=== PATIENT | male | born 1940 | race Caucasian/White ===

== ENCOUNTER 2018-01-02 12:02 | Outpatient (REF) | payer MEDICARE, SELFPAY ==
[2018-01-02 21:23] LABS: HCT 43.2 % (40.0-50.0); HGB 14.6 g/dL (13.5-17.5); Mean Corp. HGB Concentration 33.8 g/dL (32.0-36.0); Mean Corpuscular Hemoglobin 31.4 pg (27.0-33.0); Mean Corpuscular Volume 92.9 fL (80-95); Mean Platelet Volume 10.1 fL (8.0-11.0); Platelet Count 172 x1000/uL (130-400); RBC 4.65 m/cumm (4.50-6.00); RBC Distribution Width 12.6 % (11.8-14.1); White Blood Cell Count 5.72 k/cumm (4.4-10.8)
== END 2018-01-02 12:22 ==
LOC: NCHCN 12:02
PROVIDERS: PCP Family Medicine; Visit Provider Specialist/Technologist Athletic Trainer
DX: E53.8 Deficiency of other specified B group vitamins (principal); D51.0 Vitamin B12 deficiency anemia due to intrinsic factor deficiency
CPT/HCPCS: 85027

== ENCOUNTER 2018-07-06 11:45 | Outpatient (REF) | payer MEDICARE, SELFPAY ==
[2018-07-06 22:22] LABS: Anion Gap 8.8 mmol/L (3-11); BUN 21 mg/dL (7-18); CO2 27.2 mmol/L (21.0-32.0); CREATININE 1.01 mg/dL (0.70-1.30); Calcium 8.9 mg/dL (8.5-10.1); Chloride 104 mmol/L (98-107); Glucose 98 mg/dL (70-100); Potassium 4.3 mmol/L (3.5-5.1); Sodium 140 mmol/L (136-145)
== END 2018-07-06 12:05 ==
LOC: NCHCN 11:45
PROVIDERS: PCP Family Medicine; Visit Provider Specialist/Technologist Athletic Trainer
DX: I10 Essential (primary) hypertension (principal)
CPT/HCPCS: 80048

== ENCOUNTER 2019-07-13 12:40 | Outpatient (REF) | payer MEDICARE, SELFPAY ==
[2019-07-13 20:10] LABS: Mean Corp. HGB Concentration 33.3 g/dL (32.0-36.0); Mean Corpuscular Hemoglobin 32.7 pg (27.0-33.0); Mean Corpuscular Volume 98.1 fL (80-95); Mean Platelet Volume 9.9 fL (8.0-11.0); Platelet Count 195 x1000/uL (130-400); RBC 4.28 m/cumm (4.50-6.00); RBC Distribution Width 12.7 % (11.8-14.1); White Blood Cell Count 5.28 k/cumm (4.4-10.8)
[2019-07-13 20:17] LABS: Vitamin B12 104 pg/mL (193-986)
== END 2019-07-13 13:00 ==
LOC: NCHCN 12:40
PROVIDERS: PCP Family Medicine; Visit Provider Nurse Practitioner Family
DX: E53.8 Deficiency of other specified B group vitamins (principal); R25.2 Cramp and spasm
CPT/HCPCS: 85027; 82607

== ENCOUNTER 2020-12-29 21:57 | Outpatient (REF) | payer MEDICARE, SELFPAY ==
[2020-12-29 20:38] LABS: HCT 39.8 % (40.0-50.0); HGB 13.1 g/dL (13.5-17.5); MCH 29.7 pg (27.0-33.0); MCHC 32.9 % (32.0-36.0); MCV 90.2 fL (80-95); MPV 9.4 fL (8.0-11.0); Platelet Count 213 10^3/uL (130-400); RBC 4.41 10^6/uL (4.36-5.78); RDW 12.6 % (11.8-14.1); RDW-SD 41.5 fL; WBC 7.09 10^3/uL (4.4-10.8)
[2020-12-29 20:44] LABS: Anion Gap 6.8 mmol/L (3-11); BUN 18 mg/dL (7-18); CO2 29.2 mmol/L (21.0-32.0); CREATININE 1.1 mg/dL (0.70-1.30); Calcium 8.7 mg/dL (8.5-10.1); Chloride 106 mmol/L (98-107); Glucose 92 mg/dL (74-106); Potassium 4.3 mmol/L (3.5-5.1); Sodium 142 mmol/L (136-145)
[2020-12-29 21:27] LABS: Calculated LDL 70 mg/dL (<100); Cholesterol 117 mg/dL (<200); HDL Cholesterol 36 mg/dL (40-60); Triglyceride 57 mg/dL (<150); Vitamin B12 132 pg/mL (193-986)
== END 2020-12-29 21:58 | disposition home or self-care (01) ==
LOC: NCHCN 21:57
PROVIDERS: PCP Family Medicine; Visit Provider Nurse Practitioner Family
DX: I10 Essential (primary) hypertension (principal); E53.8 Deficiency of other specified B group vitamins; R20.2 Paresthesia of skin; M19.90 Unspecified osteoarthritis, unspecified site
CPT/HCPCS: 80048; 80061; 85027; 82607

== ENCOUNTER → 2021-09-25 09:42 | Outpatient (BNVA) | payer MEDICARE, SELFPAY | PROVIDERS: PCP Family Medicine; Referring Provider Family Medicine; Visit Provider Physical Therapy Assistant | DX: Z12.11 Encounter for screening for malignant neoplasm of colon (principal) ==

== ENCOUNTER 2021-11-18 06:57 | Day surgery (SDC) | payer MEDICARE, SELFPAY ==
--- NOTE | 2021-11-18 06:28 | HPE_ITS ---
Assessment and Plan Assessment and plan (1) Screening for colon cancer: Status: Acute Assessment and plan: The patient is here for Colonoscopy pre-op.?His last screening in his medical chart says 2006, which was unremarkable. Note from PCP states Colonoscopy in 2010, patient does not recall when his last [place]. was.?He has no family history of colon cancer. He has not had any bowel habit changes. -Discussed colonoscopy bowel prep as well as the procedure. Discussed possible complications of the procedure to include bleeding, pain, perforation, missed small lesion/polyp, sore throat, aspiration and adverse reaction to the medications. Questions were answered to patient?s satisfaction. No guarantees were implied or given.? P// Colonoscopy under sedation History of Present Illness Narrative: 80 y/o male with history of pernicious anemia and HTN presents for colonoscopy screening pre-op. His last screening in his medical chart says 2006, which was unremarkable. Note from PCP states Colonoscopy in 2010, patient does not recall when his last [place]. was.? He denies a family history of colon cancer. He denies any changes in bowel habits including bloody or black tarry stools, abdominal pain, diarrhea or constipation. He denies constitutional symptoms. Denies use of marijuana or any other recreational or illegal drugs. He denies chest pain, palpitations, dyspnea or dyspnea with exertion. He denies prior history or family history of adverse reactions or complications with anesthesia. The patient denies any history of stroke, NV, seizures, bleeding or clotting disorders. He denies having any implanted metal in his body. No changes in his health since he was last seen Review of Systems All systems reviewed & are unremarkable except as noted in HPI and below PFSH All Active Problems Pernicious anemia (Acute) Screening for colon cancer (Acute) Medical History B12 deficiency Hypertension Muscle cramps Osteoarthritis Paresthesia Rash Seasonal allergies Vitamin D deficiency Social History Smoking/Tobacco Use Status: Former Tobacco Use Quit Date: 02/28/62 Smoking risk assessment performed?: Yes Alcohol Intake: current Alcohol Intake frequency: holidays/special occasions only Alcohol type: wine Drug use: Never Substance use type: does not use Do you feel safe at home: Yes Do you feel safe in your relationship?: Yes Meds Allergies and Home Medications Allergies Allergy/AdvReac Type Severity Reaction Status Date / Time No Known Allergies Allergy Verified 11/18/21 07:29 Home Medications Medication Instructions Recorded Confirmed Type cholecalciferol (vitamin D3) 25 25 mcg PO DAILY 01/29/21 09/25/21 History mcg (1,000 unit) capsule cyanocobalamin (vitamin B-12) 1,000 mcg subcut QMONTH 01/29/21 11/18/21 History 1,000 mcg/mL injection solution lisinopril 10 mg tablet 10 mg PO DAILY 01/29/21 11/18/21 History multivitamin 1 tab PO DAILY 01/29/21 11/18/21 History bisacodyl 5 mg tablet,delayed 5 mg PO ONCE #4 tabs 09/25/21 11/18/21 Rx release (Dulcolax (bisacodyl)) polyethylene glycol 3350 17 17 g PO ONCE #238 grams 09/25/21 11/18/21 Rx gram/dose oral powder Exam Const General: comfortable and no acute distress Orientation: alert and oriented x3 HENMT Head: normocephalic and atraumatic Resp Effort & Inspection: normal respiratory effort Auscultation: clear to auscultation bilaterally Cardio Rate: regular rate Rhythm: regular rhythm GI Inspection: normal to inspection Palpation: soft, no hepatosplenomegaly and nontender
--- NOTE | 2021-11-18 06:35 | PDOC.DSDIS_ITS ---
Discharge Plan Disposition Patient Disposition: HOME Condition: Good Discharge Details Reason For Visit: colonoscopy Attending Provider: Cora Goodson Primary Care Provider: Diane Bauer V Home Meds and New Rx's Prescriptions: Continued multivitamin Tablet 1 tab PO DAILY cholecalciferol (vitamin D3) 25 mcg (1,000 unit) capsule 25 mcg PO DAILY cyanocobalamin (vitamin B-12) 1,000 mcg/mL solution 1,000 mcg subcut QMONTH lisinopril 10 mg tablet 10 mg PO DAILY Discontinued bisacodyl [Dulcolax (bisacodyl)] 5 mg tablet,delayed release (DR/EC) 5 mg PO ONCE Qty: 4 0RF Rx Instructions: Take according to provider's instructions for colonoscopy prep. polyethylene glycol 3350 17 gram/dose powder 17 g PO ONCE Qty: 238 0RF Rx Instructions: To be taken as directed by prescriber's office for colonoscopy prep. Discharge Instructions Instructions: Colorectal Polyps (DC), Diverticulosis (DC) Additional Instructions: Findings: polyps x4 Diverticulosis Follow up: 5 years Please call if you develop: fevers >101.5 Nausea or Vomiting Abdominal pain that is not transient Rectal bleeding that is more then a tbsp A hard abdomen and inability to pass gas DAY SURGERY UNIT POST ENDOSCOPY INSTRUCTIONS Instructions for everyone who is given Anesthesia: For your safety, please do the following for the next 24 Hours: a. Do not drive or operate dangerous equipment b. Do not drink alcohol beverages or use any recreational drugs for the first 24 hours or while taking pain medications. The medications in your body may have a reaction that can be dangerous. c. Do not make any important decisions or sign any important papers 1. Generally there are no restrictions on your activity after a day or so has gone by, but you may feel a bit fatigued for a few days. 2. After you arrive home you may have a light meal and return to a normal diet as you can tolerate it without feeling sick to your stomach. 3. After surgery, you may feel pain or discomfort. This should be only transi ent, but if it persists please contact your doctor. 4. If there are any questions regarding the findings of your procedure, please feel free to contact your doctor. 6. If you are unable to contact your doctor with a problem, contact the hospital at [phone]. 7. Continue all your regular medications unless directed otherwise. I understand the above instructions and have no questions. Signature of Patient or Responsible Adult Escort Date/Time Name of Responsible Adult Escort Signature of Nurse Date/Time Activity:: Activity as Tolerated Diet:: high fiber Discharge Orders Discharge Orders: Discharge Order (Routine); Ordered 11/18/21 Ordered By: Cora Goodson DS: Diagnosis Discharge Diagnosis (1) Screening for colon cancer: Status: Acute
--- NOTE | 2021-11-18 06:36 | W.COLOREPORT ---
Colonoscopy Report Date of procedure: 11/18/21 Pre-op diagnosis general: colon cancer screening Post-op diagnosis procedure note: other (polyps and diverticulosis) Procedure: Colonoscopy with polypectomy Surgeon: Cora Goodson Anesthesia Type: General:No Airway Estimated blood loss (mL): 3 Pathology: other (ascending polyps x2, transverse polyp, sigmoid polyp) Complications: None Disposition: same day Indications: The patient is here for Colonoscopy pre-op.?His last screening in his medical chart says 2006, which was unremarkable. Note from PCP states Colonoscopy in 2010, patient does not recall when his last [place]. was.?He has no family history of colon cancer. He has not had any bowel habit changes. -Discussed colonoscopy bowel prep as well as the procedure. Discussed possible complications of the procedure to include bleeding, pain, perforation, missed small lesion/polyp, sore throat, aspiration and adverse reaction to the medications. Questions were answered to patient?s satisfaction. No guarantees were implied or given.? Prep: Miralax/Dulcolax Procedure Start Time: 08:26 Procedure End Time: 08:52 Retraction Time: 9 minutes Findings: 4 small polyps 'Diverticulosis Procedure Description: After informed consent was obtained the patient was taken to the procedure room and placed in a left decubitous position. Monitors were applied and a time out was done. The patients name, date of , procedure, allergies to medications and metal in their body was reviewed. The patient was then sedated. Once sedated and comfortable a rectal exam was done. External exam was normal. Internal exam revealed a normal sphincter tone and no palpable masses. I was unable to feel the prostate. The scope was then introduced and retro-flexed. Grade 2 internal hemorrhoids were identified. No polyps or masses were identified on retro-flexion. The scope was then advanced to the cecum without difficulty. The ileocecal vlave and appendiceal orifice were identified. The prep was good. The scope was then slowly retracted over 9 minutes back into the rectum. Polyps were removed with cold forceps in the ascending colon x2, transverse colon and sigmoid colon. There was mild navarro- diverticulosis noted. The scope was removed and the patient was woken up and taken back to Same day surgery in stable condition. The patient tolerated the procedure well and there were no immediate complications.
--- NOTE | 2021-11-18 07:06 | ANES.PREOP_ITS ---
General Info Date of Service Date Performed: 11/18/21 Height: 5 ft 8 in Weight: 81.647 kg Body Mass Index (BMI): 27.3 Surgical Procedure: Operation Date: 11/18/21 08:35 Proposed Procedure Side Surgeon p Mario Goodson MD Meds Allergies and Home Medications Allergies Allergy/AdvReac Type Severity Reaction Status Date / Time No Known Allergies Allergy Verified 11/18/21 07:29 Home Medication Medication Instructions Recorded cholecalciferol (vitamin D3) 25 25 mcg PO DAILY 01/29/21 mcg (1,000 unit) capsule cyanocobalamin (vitamin B-12) 1,000 mcg subcut QMONTH 01/29/21 1,000 mcg/mL injection solution lisinopril 10 mg tablet 10 mg PO DAILY 01/29/21 multivitamin 1 tab PO DAILY 01/29/21 bisacodyl 5 mg tablet,delayed 5 mg PO ONCE #4 tabs 09/25/21 release (Dulcolax (bisacodyl)) polyethylene glycol 3350 17 17 g PO ONCE #238 grams 09/25/21 gram/dose oral powder Current Visit Medications: Current Medications Generic Name Dose Route Start Last Admin Trade Name Freq PRN Reason Stop Dose Admin Hyoscyamine Sulfate 0.125 mg 11/18/21 06:33 Hyoscyamine 0.125 Mg Sl/Oral/Chew SL DIRECTED PRN Ringer's Solution 1,000 mls @ 80 mls/hr 11/18/21 06:00 IV 11/18/21 23:59 INFUSION [facility] IV Miscellaneous Supplies 1 each 11/18/21 06:00 Iv Access IV 11/18/21 23:59 DIRECTED JUAN Ondansetron HCl 4 mg 11/18/21 06:33 Ondansetron 4 Mg/2 Ml Vial IVP Q4H PRN PRN Nausea / Vomiting Sodium Chloride 0 ml 11/18/21 06:00 Normal Saline Flush 10 Ml Syr IV 11/18/21 23:59 PRN PRN Sodium Chloride 0 ml 11/18/21 06:00 Normal Saline 10 Ml Vial IJ 11/18/21 23:59 DIRECTED PRN Sterile Water 0 ml 11/18/21 06:00 Water,Injection,Sterile 10 Ml Vial IJ 11/18/21 23:59 DIRECTED PRN PFSH Active Problems Active Problems: Problem Status Onset Code Pernicious anemia D51.0 Screening for colon cancer Z12.11 Medical History Medical History B12 deficiency Hypertension Muscle cramps Osteoarthritis Paresthesia Rash Seasonal allergies Vitamin D deficiency Tobacco Smoking/Tobacco Use Status: Former Tobacco Use Alcohol Alcohol Intake: current Alcohol intake frequency: holidays/special occasions only Alcohol type: wine Substance Use Substance use: Never Substance use type: does not use Vital Signs and Lab Results Vital Signs Most Recent Vital Signs in EMR: Temp Pulse Resp BP Pulse Ox 36.5 C 78 16 112/65 98 11/18/21 07:15 11/18/21 07:15 11/18/21 07:15 11/18/21 07:15 11/18/21 07:15 Lab Results Blood Type / Crossmatch: No Data to Display Complete Blood Count: No Data to Display Complete Metabolic Panel: No Data to Display Liver Function Panel: No Data to Display Coagulation Panel: No Data to Display Cardiac Panel: No Data to Display Arterial Blood Gas: No Data to Display Venous Blood Gas: No Data to Display Pancreas Panel: No Data to Display Thyroid Panel: No Data to Display Infectious Disease: No Data to Display Blood Cultures: No Data to Display Toxicology Panel: No Data to Display Anesthesia Assessment and Plan Anesthesia History Personal History: No History of Anesthesia Complications Family History: No Family History of Anesthesia Complications Exercise Tolerance Exercise Tolerance: Metabolic Equivalents>4 Pertinent Negatives Pertinent Negatives: No Symptoms of GERD, No Major Cardiovascular Symptoms or Complaints and No Major Pulmonary Symptoms or Complaints Cardiac & Pulmonary Exam Cardiac Exam: Normal S1/S2 Heart Sounds Pulmonary Exam: Clear Bilateral Breath Sounds Implantable Cardiac Device Does patient have a Pacemaker or an ICD?: No Airway Exam Known Difficult Airway: No Mallampati Class: 2 Mouth Opening: Normal (> 3cm) Thyromental Distance: Greater than 3 cm Neck Range of Motion: Full ROM Neck Circumference: Normal Teeth Condition: Normal Dentition ASA Classification ASA Score: ASA 2 Emergency Case?: No NPO Status NPO Status: NPO Clears >2 hours, Solids >8 hours Anesthesia Plan Resuscitation Status: Full Code Anesthesia Technique: General Anesthesia Airway Planned: Natural Airway Monitors Used: Standard Monitors
[2021-11-18 07:15] VITALS: BP 112/65; PULSE 78; RESP 16; TEMP 36.5; O2SAT 98
[2021-11-18] MEDS: Lactated Ringers 1,000 ML 80 ML IV (07:52)
[2021-11-18 08:04] VITALS: BMI 27.3
--- NOTE | 2021-11-18 08:39 | BOWEL_PTH ---
PATIENT: Ronaldo Wright LOC: [facility] U#:[id number] AGE/SX: 80/M ROOM: RE11/18/[address]: Cora Goodson MD : [id number] BED: DIS: 11/18/2021 SPEC #: [id number] RECD: 11/18/21 12:46 STATUS: GURMEET REQ #: [id number] MELO: 11/18/21 08:[address]: Cora Goodson DEPT: Surgical Specimen RECD BY: Megan Fajardo ENTERED: 11/18/21 12:48 SP TYPE: Bowel OTHR DR: Diane Bauer V Tissues: 1 - BIOPSY BOWEL 2 - BIOPSY BOWEL 3 - BIOPSY BOWEL Procedures: GROSS AND MICRO LEVEL 4 Comments: [id number]
[2021-11-18 08:55] VITALS: BP 123/96; PULSE 80; RESP 18; TEMP 36.4; O2SAT 100
--- NOTE | 2021-11-18 09:31 | W.ANESPOSTOP ---
Postoperative Evaluation Date, Time and Location Date Performed: 11/18/21 Time Performed: 08:56 Patient Location: Day Surgery Unit Vital Signs Most Recent Imported Vital Signs: Most Recent Vital Signs Temp Pulse Resp BP Pulse Ox 36.4 C L 80 18 123/96 H 100 11/18/21 08:55 11/18/21 08:55 11/18/21 08:55 11/18/21 08:55 11/18/21 08:55 Pain Score Most Recent Pain Score: Most Recent Pain Score Pain Level 0 11/18/21 08:55 Assessment Mental Status: Awake (Alert & Oriented to Patient Baseline) Airway and Respiratory Function: Patent airway with normal (patient baseline) respiratory exam Cardiovascular Function: Hemodynamically Stable Hydration Status: Adequately Hydrated Nausea & Vomiting: No Nausea or Vomiting Pain: Pt. Denies Any Pain Peripheral Nerve Block: Patient did not receive a nerve block
== END 2021-11-18 09:50 | disposition home or self-care (01) ==
PROVIDERS: PCP Family Medicine; Visit Provider Surgery
PROC: 0DJD8ZZ Inspection of Lower Intestinal Tract, Via Natural or Artificial Opening Endoscopic (ICD-10-PCS; CPT 45378; principal; 2021-11-18 08:30)
DX: Z12.11 Encounter for screening for malignant neoplasm of colon (principal); K63.5 Polyp of colon; K57.30 Diverticulosis of large intestine without perforation or abscess without bleeding
CPT/HCPCS: 45380; 88305

== ENCOUNTER 2022-02-19 12:56 | Outpatient (REF) | payer MEDICARE, SELFPAY ==
[2022-02-19 21:04] LABS: HGB 12.8 g/dL (13.5-17.5); MCHC 33.7 % (32.0-36.0); MCV 89 fL (80-95); MPV 9.2 fL (8.0-11.0); Platelet Count 205 10^3/uL (130-400); RBC 4.26 10^6/uL (4.36-5.78); RDW 14.6 % (11.8-14.1); RDW-SD 46.6 fL; WBC 5.75 10^3/uL (4.4-10.8)
[2022-02-19 21:41] LABS: Vitamin D 25 Total 46.6 ng/mL (30-100)
[2022-02-19 22:19] LABS: Anion Gap 6.9 mmol/L (3-11); BUN 24 mg/dL (7-18); CO2 30.1 mmol/L (21.0-32.0); CREATININE 1.2 mg/dL (0.70-1.30); Calcium 9.2 mg/dL (8.5-10.1); Chloride 102 mmol/L (98-107); Estimated GFR 61.13 (mL/min/1.73m2); Glucose 94 mg/dL (74-106); Potassium 5.3 mmol/L (3.5-5.1); Sodium 139 mmol/L (136-145); Vitamin B12 263 pg/mL (193-986)
[2022-02-22 17:36] LABS: PSA, Screening 0.4 ng/mL (<=6.5)
== END 2022-02-19 12:57 | disposition home or self-care (01) ==
LOC: NCHCN 12:56
PROVIDERS: PCP Family Medicine; Visit Provider Nurse Practitioner Family
DX: D51.0 Vitamin B12 deficiency anemia due to intrinsic factor deficiency (principal); I10 Essential (primary) hypertension; Z12.5 Encounter for screening for malignant neoplasm of prostate; E55.9 Vitamin D deficiency, unspecified
CPT/HCPCS: 80048; 82306; 84153; 85027; 82607

== ENCOUNTER 2022-03-10 02:15 | Outpatient (CLI) | payer MEDICARE, SELFPAY ==
--- NOTE | 2022-03-10 | DI.US_ITS ---
Exam(s) US CAROTID EXAM: US CAROTID CLINICAL HISTORY: DIZZINESS R42. TECHNIQUE: Ultrasound carotids performed using grayscale, color-flow, and spectral Doppler imaging. COMPARISON: No exams were available for comparison FINDINGS: RIGHT CAROTID ARTERY: Plaque: Moderate amount of soft plaque in the right common carotid bulb and proximal internal carotid artery. Visually moderate degree of stenosis. Mild systolic and diastolic velocity elevation. LEFT CAROTID ARTERY: Plaque: Small amount of calcific plaque left common carotid bulb. Velocity elevation: None. VERTEBRAL ARTERIES: Antegrade flow. Measurements: R Bulb: 61.9cm/s PS / 24.4cm/s ED R CCA: 62.1cm/s PS / 19.3cm/s ED R ECA: 83.5cm/s PS / 25.3cm/s ED R ICA Prox: 102.6cm/s PS / 30.5cm/s ED R ICA Mid: 115.2cm/s PS / 43.1cm/s ED R ICA Distal: 95.4cm/s PS /32.3cm/s ED R Vert: 61cm/s PS / 15.9cm/s ED R SVR: 1.9 R DVR: 2.2 L Bulb: 36.8cm/s PS / 12.7cm/s ED L CCA: 66.6cm/s PS / 19.6cm/s ED L ECA: 78.6cm/s PS / 9.7cm/s ED L ICA Prox: 53.4cm/s PS / 18.5cm/s ED L ICA Mid: 69.7cm/s PS / 24.4cm/s ED L ICA Distal: 68.5cm/s PS / 24.4cm/s ED L Vert: 45cm/s PS / 17.8cm/s ED L SVR: 1 L DVR: 1.2 IMPRESSION: Left: No evidence for hemodynamically significant carotid stenosis. Right: Approximate 50 percent stenosis proximal right internal carotid artery secondary to mainly sof t plaque.. Criteria for Carotid Stenosis: Normal: ICA PSV <125 cm/s no plaque or intimal thickening is visible. <50% stenosis: ICA PSV <125 cm/s and plaque or intimal thickening is visible. 50-69% stenosis: ICA PSV is 125-250 cm/s and plaque is visible. >70% stenosis to near occlusion: ICA PSV >250 cm/s with visible plaque and luminal narrowing. DATA REPOSITORY:
--- NOTE | 2022-03-10 | DI.US_ITS ---
Exam(s) US AAA SCREENING EXAM: US AAA SCREENING CLINICAL HISTORY: HX OF SMOKER Z87.891 COMPARISON: No exams were available for comparison FINDINGS: Abdominal Aorta: Proximal: 2.3 cm Mid: 2.4 cm Distal: 2.2 cm Iliacs: Right: 1.5 cm Left: 1.5 cm Atherosclerotic calcification noted IMPRESSION: No evidence of abdominal aortic aneurysm. DATA REPOSITORY:
== END 2022-03-10 02:35 ==
LOC: DI 02:15
PROVIDERS: PCP Family Medicine; Visit Provider Nurse Practitioner Family
DX: R42 Dizziness and giddiness (principal); Z13.6 Encounter for screening for cardiovascular disorders
CPT/HCPCS: 76706; 93880

== ENCOUNTER 2023-08-22 15:16 | Outpatient (REF) | payer MEDICARE, SELFPAY ==
[2023-08-22 15:57] LABS: Abs Immature Grans 0.01 10^3/uL (0.0-0.06); Absolute Basophil Count 0.03 10^3/uL (0.0-0.2); Absolute Eosinophil Count 0.09 10^3/uL (0.0-0.7); Absolute Lymphocyte Count 2.12 10^3/uL (1.2-3.4); Absolute Monocyte Count 0.74 10^3/uL (0.1-0.8); Absolute Neutrophil Count 2.44 10^3/uL (1.2-6.7); Basophils % 0.6 %; Eosinophils % 1.7 %; HCT 40.5 % (40.0-50.0); HGB 13.4 g/dL (13.5-17.5); Immature Grans % 0.2 %; MCH 30.6 pg (27.0-33.0); MCHC 33.1 % (32.0-36.0); MCV 93 fL (80-95); Monocytes % 13.6 %; Neutrophils % 44.9 %; Platelet Count 161 10^3/uL (130-400); RBC 4.38 10^6/uL (4.36-5.78); RDW 13.2 % (11.8-14.1); RDW-SD 44.9 fL; WBC 5.43 10^3/uL (4.4-10.8)
[2023-08-22 17:37] LABS: Anion Gap 7.3 mmol/L (3-11); BUN 17 mg/dL (7-18); CO2 28.7 mmol/L (21.0-32.0); CREATININE 1.1 mg/dL (0.70-1.30); Calcium 9.3 mg/dL (8.5-10.1); Chloride 105 mmol/L (98-107); Estimated GFR 67.44 (mL/min/1.73m2); Folate > 20.0 ng/mL (8.6-20.0); Glucose 96 mg/dL (74-106); Potassium 5.2 mmol/L (3.5-5.1); Sodium 141 mmol/L (136-145); Vitamin B12 159 pg/mL (193-986)
== END 2023-08-22 15:17 | disposition home or self-care (01) ==
LOC: NCHCN 15:16
PROVIDERS: PCP Family Medicine; Visit Provider Nurse Practitioner Family
DX: D51.0 Vitamin B12 deficiency anemia due to intrinsic factor deficiency (principal); I10 Essential (primary) hypertension
CPT/HCPCS: 80048; 82607; 82746; 85025

== ENCOUNTER → 2023-08-25 00:34 | Outpatient (CLI) | payer MEDICARE, SELFPAY ==
--- NOTE | 2023-08-25 | DI.US_ITS ---
Exam(s) US CAROTID EXAM: US CAROTID CLINICAL HISTORY: CAROTID ARTHEROSCLEROSIS, I65.29. TECHNIQUE: Ultrasound carotids performed using grayscale, color-flow, and spectral Doppler imaging. COMPARISON: US US CAROTID from 03/10/2022 FINDINGS: RIGHT CAROTID ARTERY: Plaque: Mild calcific plaque in the carotid bulb. Velocity elevation: None. LEFT CAROTID ARTERY: Plaque: Mild calcific plaque in the carotid bulb. Velocity elevation: None. VERTEBRAL ARTERIES: Antegrade flow. Measurements: R Bulb: 124.8cm/s PS / 42.9cm/s ED R CCA: 75.3cm/s PS / 21.8cm/s ED R ECA: 88.9cm/s PS / 13cm/s ED R ICA Prox: 136.3cm/s PS / 51.6cm/s ED R ICA Mid: 88.1cm/s PS / 34.5cm/s ED R ICA Distal: 61.2cm/s PS /25.1cm/s ED R Vert: 38.7cm/s PS / 12cm/s ED R SVR: 1.8 R DVR: 2.4 L Bulb: 73.2cm/s PS / 21.1cm/s ED L CCA: 68.5cm/s PS / 20.6cm/s ED L ECA: 111cm/s PS / 17.7cm/s ED L ICA Prox: 75.7cm/s PS / 25.9cm/s ED L ICA Mid: 74.3cm/s PS / 36cm/s ED L ICA Distal: 82.2cm/s PS / 33cm/s ED L Vert: 51.2cm/s PS / 19.5cm/s ED L SVR: 1.2 L DVR: 1.6 IMPRESSION: No evidence for hemodynamically significant carotid stenosis. Criteria for Carotid Stenosis: Normal: ICA PSV <125 cm/s no plaque or intimal thickening is visible. <50% stenosis: ICA PSV <125 cm/s and plaque or intimal thickening is visible. 50-69% stenosis: ICA PSV is 125-250 cm/s and plaque is visible. >70% stenosis to near occlusion: ICA PSV >250 cm/s with visible plaque and luminal narrowing. DATA REPOSITORY:
--- NOTE | 2023-08-25 10:45 | DI.RAD_ITS ---
Exam(s) XR KNEE LT 3V AP,LAT,REMY EXAM: XR KNEE LT 3V AP,LAT,REMY CLINICAL HISTORY: PAIN OF BILAT KNEE REGIONS, M25.562. TECHNIQUE: 2D digital imaging was performed of the left knee. Three images were obtained. AP, late ral and PA tunnel views were obtained. COMPARISON: No exams were available for comparison FINDINGS: BONES: No acute fracture is present. There is a benign-appearing subchondral cyst in the medial tibi al plateau posteriorly.. There is an enthesophyte at the anterior patella. JOINTS: There is marked narrowing of the medial femoral tibial joint with [id number] on the weight- bearing images. Osteophytes are seen at the posterior patella and the medial femoral tibial joint. There is chondrocalcinosis in the femoral tibial joint. There is a small joint effusion. No loose b noemi. SOFT TISSUE: Vascular calcifications are present. IMPRESSION: Marked osteoarthritis of the left knee. DATA REPOSITORY: RADIATION DOSE DELIVERED:
--- NOTE | 2023-08-25 10:45 | DI.RAD_ITS ---
Exam(s) XR KNEE RT 3V AP,LAT,REMY EXAM: XR KNEE RT 3V AP,LAT,REMY CLINICAL HISTORY: PAIN OF BILAT KNEE REGIONS, M25.562. TECHNIQUE: 2D digital imaging was performed of the right knee. Four views obtained. AP, lateral and PA tunnel views were obtained. COMPARISON: No priors for comparison. FINDINGS: BONES: No acute fracture is present. No bony destructive lesion is seen. Small enthesophyte at the an terior patella. JOINTS: There is marked narrowing of the medial femoral tibial joint on the weight-bearing images. O steophytes are seen in all 3 joint compartments. There is a small joint effusion. SOFT TISSUE: Vascular calcifications are seen in the soft tissues. IMPRESSION: Marked arthrosis of the right knee. DATA REPOSITORY: RADIATION DOSE DELIVERED:
== END ==
PROVIDERS: PCP Family Medicine; Visit Provider Nurse Practitioner Family
DX: I65.29 Occlusion and stenosis of unspecified carotid artery (principal); M25.561 Pain in right knee; M25.562 Pain in left knee
CPT/HCPCS: 73562; 93880